=== PATIENT | male | born 1985 | race Caucasian/White ===

== ENCOUNTER 2017-06-28 23:21 | Emergency (ER) | payer SELFPAY ==
[~2017-06-28] VITALS: Ht 190.5 cm; Wt 153.6 kg
[2017-06-29] MEDS ORDERED: ISOVUE-370 76% 100ML VIAL (Q9967) As Ordered ONE (05:03)
[2017-06-29 05:32] LABS: BASO % 0.6 % (0.0-1.0); EOS # 0.2 K/mm3 (0.0-0.50); EOS % 1.9 % (0.0-3.0); LARGE UNSTAINED CELL # 0.1 K/mm3 (0.0-0.4); LARGE UNSTAINED CELL % 1.8 % (0.0-4.0); LYMPH # 1.7 K/mm3 (1.5-6.5); MEAN CORPUSCULAR HEMOGLOBIN 31.3 pg (27.0-33.0); MEAN CORPUSCULAR VOLUME 89.5 fl (80.0-96.0); MONO # 0.5 K/mm3 (0.0-0.8); MONO % 5.7 % (0.0-5.0); NEUTROPHILS # 5.3 K/mm3 (1.8-7.7); PLATELET COUNT, AUTOMATED 124 k/mm3 (150-450); RED CELL DISTRIBUTION WIDTH 12.8 % (11.5-14.5); WHITE BLOOD COUNT 7.8 K/mm3 (4.0-10.0)
[2017-06-29 05:46] LABS: ALBUMIN 3.9 GM/DL (3.2-5.2); ALBUMIN/GLOBULIN RATIO 0.98 (1.00-1.93); ALKALINE PHOSPHATASE 108 U/L (45-117); ALT/SGPT 62 U/L (12-78); AMYLASE 34 U/L (25-115); ANION GAP 5 MEQ/L (8-16); AST/SGOT 43 U/L (15-37); BILIRUBIN,DIRECT < 0.1 MG/DL (0.0-0.2); BILIRUBIN,TOTAL 0.3 MG/DL (0.2-1.0); BLOOD UREA NITROGEN 16 MG/DL (7-18); CALCIUM LEVEL 9.2 MG/DL (8.5-10.1); CARBON DIOXIDE LEVEL 30 MEQ/L (21-32); CHLORIDE LEVEL 105 MEQ/L (98-107); GLOMERULAR FILTRATION RATE > 60.0 (>60); GLUCOSE, FASTING 281 MG/DL (70-105); POTASSIUM SERUM 4.2 MEQ/L (3.5-5.1); SODIUM LEVEL 140 MEQ/L (136-145); TOTAL PROTEIN 7.9 GM/DL (6.4-8.2)
[2017-06-29] MEDS ORDERED: NORCO, ANEXSIA 5/325MG TABLET (HYDROcodone/ACETAMINOPHEN) PO ONE (06:15)
--- NOTE | 2017-06-29 06:30 | REPUSA ---
CLINICAL HISTORY: Trauma. TECHNIQUE: Multiple axial CT images were obtained through the thorax without IV contrast material. COMMENTS: Bilateral basilar atelectatic pulmonary changes. There is no evidence of pleural or parenchymal-based mass. There are no pleural effusions. There is n o evidence of hilar or mediastinal lymphadenopathy. The heart and great vessels are within normal meléndez its. The visualized portions of the liver are of uniform attenuation without mass or defect. There is no i ntra or extrahepatic biliary ductal dilatation. The spleen is unremarkable. The visualized pancreas i s of normal contour and attenuation characteristics. There is no evidence of adrenal mass. The visual ized portions of the kidneys present no abnormalities. The bony structures are free of lytic or blastic lesions. IMPRESSION: Bilateral basilar atelectatic pulmonary changes. Thank you for your kind referral of this patient.
--- NOTE | 2017-06-29 06:50 | REPUSA ---
CLINICAL HISTORY: Abdominal pain. TECHNIQUE: Multiple axial, sagittal and coronal CT images were obtained through the abdomen and pelvi s after administration of intravenous contrast material. COMMENTS: The liver is mildly enlarged with irregular contour without mass or defect. There is no intra or extr ahepatic biliary ductal dilatation. The spleen is mildly enlarged. The gallbladder is mildly enlarged . The pancreas is of normal contour and attenuation characteristics. There is no evidence of adrenal mass. Both kidneys demonstrate prompt and equal nephrograms. The kidneys are normal in size, shape and conf iguration. There is no evidence of renal or ureteral mass. No renal or ureteral calculi are identifie d. There is no hydroureter or hydronephrosis. No evidence for appendicitis. There is no bowel wall thickening. No evidence for small or large mark l obstruction. There is no evidence of abdominal ascites or lymphadenopathy. There is no evidence of intrinsic or extrinsic bladder mass. There is no pelvic ascites or lymphadeno crystal. Images of the lung bases show no evidence of pleural or parenchymal mass. There are no pleural effusi ons. The bony structures are free of lytic or blastic lesions. Multilevel degenerative changes are seen in volving the thoracolumbar spine. Scattered calcifications are seen involving the aorta and major bran ches compatible with atherosclerosis. IMPRESSION: No evidence of acute traumatic abdominal or pelvic pathology. Chronic parenchymal liver disease. Mild splenomegaly. Thank you for your kind referral of this patient.
--- NOTE | 2017-06-29 07:51 | REP ---
Clinical: Trauma. Technique: AP, lateral left humerus Findings: The osseous structures and joint spaces are intact and normal. There is no evidence for acute fracture or dislocation. Surrounding soft tissues are unremarkable. No subcutaneous emphysema or radiodense foreign body. Impression: Normal examination . No acute fracture or dislocation. Signed by Esequiel Bolivar MD 06/29/2017 07:42 A
[2017-06-29 07:59] VITALS: BP 160/91
--- NOTE | 2017-06-29 08:01 | REP ---
Clinical: Trauma. Technique: AP, lateral views of the left forearm. Findings: The osseous structures and joint spaces are intact and normal. There is no evidence for acute fracture or dislocation. Surrounding soft tissues are unremarkable. No subcutaneous emphysema or radiodense foreign body. Impression: Normal examination . No acute fracture or dislocation. Signed by Esequiel Bolivar MD 06/29/2017 07:53 A
--- NOTE | 2017-06-30 09:20 | ED PDOC ---
Post-Departure Follow-Up radiology report faxed to Phyllis Almendarez MD Jun 30, 2017 09:20
== END 2017-06-29 08:02 | disposition home or self-care (01) ==
LOC: M ED 23:21
DX: S52.125A Nondisplaced fracture of head of left radius, initial encounter for closed fracture (principal); R10.811 Right upper quadrant abdominal tenderness; W19.XXXA Unspecified fall, initial encounter; Y92.410 Unspecified street and highway as the place of occurrence of the external cause; Y93.89 Activity, other specified; Y99.8 Other external cause status
CPT/HCPCS: 29105; 71260; 73060; 73090; 74177; 80048; 80076; 82150; 83690; 85025; 99283; Q9967

== ENCOUNTER 2017-10-30 10:34 | Emergency (ER) | payer SELFPAY ==
[2017-10-30] MEDS: MORPHINE 10 MG/ML 1ML VIAL IM (11:13)
[2017-10-30] MEDS: IBUPROFEN 600 MG TAB PO (11:13)
[2017-10-30] MEDS: diazePAM 5 MG TAB PO (11:13)
== END 2017-10-30 12:19 | disposition home or self-care (01) ==
LOC: M ED 10:34
DX: S20.229A Contusion of unspecified back wall of thorax, initial encounter (principal); W01.198A Fall on same level from slipping, tripping and stumbling with subsequent striking against other object, initial encounter; Y92.481 Parking lot as the place of occurrence of the external cause; Y93.89 Activity, other specified; Y99.8 Other external cause status
CPT/HCPCS: 96372

== ENCOUNTER 2021-05-01 12:56 | Emergency (ER) | payer SELFPAY ==
[~2021-05-01] VITALS: Ht 190.5 cm; Wt 146.2 kg
[~2021-05-01 12:56] MED LIST: IBUP-1022 PO; ROBA500T PO
--- NOTE | 2021-05-01 15:57 | REP ---
INDICATION: hemoptysis. COMPARISON: Comparison chest x-ray June 28, 2013. TECHNIQUE: Two views.. FINDINGS: The lungs are well inflated and free of infiltrate. The pleural angles are sharp. The heart size is normal. Pulmonary vasculature is not increased. No significant bony abnormality is seen. IMPRESSION: Negative chest x-ray. <Electronically signed by Cecil Miguel > 05/01/21 2032
[2021-05-01 16:16] LABS: APPEARANCE, URINE CLEAR (CLEAR); BACTERIA, URINE AUTO NEGATIVE (NEGATIVE); BILIRUBIN, URINE AUTO NEGATIVE (NEGATIVE); BLOOD, URINE BLOOD NEGATIVE (NEGATIVE); COLOR, URINE STRAW (YELLOW); GLUCOSE, URINE (UA) AUTO 3+ mg/dL (NEGATIVE); KETONE, URINE AUTO NEGATIVE (NEGATIVE); LEUKOCYTE ESTERASE, URINE AUTO NEGATIVE (NEGATIVE); MUCUS, URINE SMALL (NEGATIVE); NITRITE, URINE AUTO NEGATIVE (NEGATIVE); PROTEIN, URINE AUTO NEGATIVE (NEGATIVE); RBC, URINE AUTO 1 /HPF (0-3); SPECIFIC GRAVITY URINE AUTO 1.031 (1.002-1.035); SQUAMOUS EPITHELIAL CELL UR AU 0 /HPF (0-6); UROBILINOGEN, URINE AUTO 0.2 mg/dL (0.0-2.0); WBC, URINE AUTO 0 /HPF (0-3)
[2021-05-01 16:51] LABS: RSV AMPLIFICATION NEGATIVE (NEGATIVE)
[2021-05-01 17:42] LABS: BASO % 0.4 % (0.0-1.0); EOS # 0.1 10^3/uL (0.0-0.5); EOS % 1.5 % (0.0-3.0); HEMATOCRIT 46.3 % (42.0-52.0); HEMOGLOBIN 15.9 g/dl (13.5-17.5); LYMPH # 1.2 10^3/uL (1.5-5.0); LYMPH % 15.9 % (24.0-44.0); MEAN CORPUSCULAR HEMOGLOBIN 30.1 pg (27.0-33.0); MEAN CORPUSCULAR HGB CONC 34.3 g/dl (32.0-36.5); MEAN CORPUSCULAR VOLUME 87.5 fl (80.0-96.0); MONO # 0.6 10^3/uL (0.0-0.8); MONO % 8.3 % (2.0-8.0); NEUTROPHILS # 5.4 10^3/uL (1.5-8.5); NEUTROPHILS % 73.5 % (36.0-66.0); PLATELET COUNT, AUTOMATED 107 10^3/uL (150-450); RED BLOOD COUNT 5.29 10^6/uL (4.30-6.10); WHITE BLOOD COUNT 7.4 10^3/uL (4.0-10.0)
[2021-05-01 18:44] VITALS: BP 139/82
--- NOTE | 2021-05-02 15:13 | ED PDOC ---
Post-Departure Follow-Up Called patient to discuss him starting to take Metformin due to his high sugar a nd making sure he gets an appointment [facility]. Patient did not answer but medication called into his pharmacy and will continue to try to reach patient. JUD PHILLIPS PA-C May 02, 2021 15:13
== END 2021-05-01 19:00 | disposition home or self-care (01) ==
LOC: M ED 12:56
DX: J31.0 Chronic rhinitis (principal); B34.9 Viral infection, unspecified; R05 Cough; R73.9 Hyperglycemia, unspecified

== ENCOUNTER 2021-10-05 13:17 | Emergency (ER) | payer SELFPAY ==
[~2021-10-05] VITALS: Ht 190.5 cm; Wt 144.8 kg
--- NOTE | 2021-10-05 14:36 | REP ---
INDICATION: facial droop for 6 months, left arm pain, numbness COMPARISON: None. TECHNIQUE: Axial noncontrast images from the skull base to the thoracic inlet with coronal and sagittal re-formations This CT examination was performed using the following dose reduction techniques: Automated exposure control, adjustment of mA and/or kv according to the patient's size, and use of iterative reconstruction technique. FINDINGS: Normal alignment is maintained. Cervical vertebral bodies including transverse processes and spinous processes are intact and there is no evidence for acute fracture / compression injury or subluxation. No significant degenerative changes are appreciated. Spinal canal is patent. Posterior elements are intact. Paravertebral soft tissues are normal. IMPRESSION: Normal age-appropriate noncontrast cervical spine CT. No evidence for acute pathology or trauma/injury. <Electronically signed by Esequiel Bolivar > 10/05/21 [id number]
--- NOTE | 2021-10-05 14:36 | REP ---
INDICATION: facial droop for 6 months, left arm pain, numbness COMPARISON: 04/27/2007 TECHNIQUE: Axial noncontrast images from the skull base to the vertex with coronal reformations. This CT examination was performed using the following dose reduction techniques: Automated exposure control, adjustment of mA and/or kv according to the patient's size, and use of iterative reconstruction technique. FINDINGS: The ventricles, sulci, and cisterns are normal in position and appearance. Berry-white differentiation is maintained. No acute intracranial hemorrhage, mass/mass effect, pathology or trauma/injury. No evidence for acute infarction. No extra-axial fluid collection. Calvarium is intact. Near complete opacification of the facial sinuses consistent with chronic pansinusitis. IMPRESSION: Normal noncontrast head CT. Chronic pansinusitis. No evidence for acute intracranial pathology or trauma/injury. <Electronically signed by Esequiel Bolivar > 10/05/21 [id number]
--- NOTE | 2021-10-05 14:37 | REP ---
INDICATION: shoulder pain COMPARISON: None. TECHNIQUE: Internal rotation, external rotation, and Y view. FINDINGS: No acute fracture or dislocation. The acromioclavicular and glenohumeral joints are intact. No periarticular calcifications or degenerative changes are appreciated. Sub acromial space is normal. Surrounding soft tissues are unremarkable. IMPRESSION: Normal left shoulder radiographs. <Electronically signed by Esequiel Bolivar > 10/05/21 1700
[2021-10-05 15:21] LABS: ALBUMIN 3.8 GM/DL (3.2-5.2); ALT/SGPT 45 U/L (12-78); BILIRUBIN,TOTAL 0.4 MG/DL (0.2-1.0); BLOOD UREA NITROGEN 19 MG/DL (7-18); C REACTIVE PROTEIN QUANTITATIV 0.71 MG/DL (0.00-0.30); CALCIUM LEVEL 9.8 MG/DL (8.5-10.1); CARBON DIOXIDE LEVEL 28 MEQ/L (21-32); CHLORIDE LEVEL 102 MEQ/L (98-107); CREATININE FOR GFR 1.06 MG/DL (0.70-1.30); GLOMERULAR FILTRATION RATE > 60.0 (>60); GLUCOSE, FASTING 438 MG/DL (70-100); POTASSIUM SERUM 4.5 MEQ/L (3.5-5.1); SODIUM LEVEL 135 MEQ/L (136-145); TOTAL PROTEIN 8.4 GM/DL (6.4-8.2)
[2021-10-05 15:42] LABS: BASO % 0.6 % (0.0-1.0); EOS # 0.1 10^3/uL (0.0-0.5); EOS % 1.7 % (0.0-3.0); HEMATOCRIT 44.5 % (42.0-52.0); HEMOGLOBIN 15.7 g/dl (13.5-17.5); LYMPH # 1.6 10^3/uL (1.5-5.0); LYMPH % 22.9 % (24.0-44.0); MEAN CORPUSCULAR HEMOGLOBIN 30.6 pg (27.0-33.0); MEAN CORPUSCULAR HGB CONC 35.3 g/dl (32.0-36.5); MEAN CORPUSCULAR VOLUME 86.7 fl (80.0-96.0); MONO # 0.5 10^3/uL (0.0-0.8); MONO % 6.6 % (2.0-8.0); NEUTROPHILS # 4.8 10^3/uL (1.5-8.5); NEUTROPHILS % 68.1 % (36.0-66.0); PLATELET COUNT, AUTOMATED 131 10^3/uL (150-450); RED BLOOD COUNT 5.13 10^6/uL (4.30-6.10)
[2021-10-05 15:58] LABS: HEMOGLOBIN A1c 10.7 %
[2021-10-05 16:00] LABS: ERYTHROCYTE SEDIMENTATION RATE 22 mm/hr (0-15)
[2021-10-05] MEDS ORDERED: METF500T13 PO (16:07)
[2021-10-05 16:26] VITALS: BP 140/81
[2021-10-07 13:07] LABS: IgG P18 AB Absent (.); IgG P23 AB Absent (.); IgG P28 AB Absent (.); IgG P30 AB Absent (.); IgG P39 AB Absent (.); IgG P41 AB Absent (.); IgG P45 AB Absent (.); IgG P66 AB Absent (.); IgG P93 AB Absent (.); IgM P23 AB Absent (.); IgM P39 AB Absent (.); IgM P41 AB Absent (.); LYME IgG WB INTERPRETATION Negative (.); LYME IgM WB INTERPRETATION Negative (.)
[2021-10-07 15:08] LABS: Lyme Disease IgG/IgM Antibodie <0.91 ISR (0.00-0.90); Lyme Disease IgM Ab Quantitati <0.80 index (0.00-0.79)
== END 2021-10-05 16:32 | disposition home or self-care (01) ==
LOC: M ED 13:17
DX: E11.9 Type 2 diabetes mellitus without complications (principal); G51.0 Bell's palsy; R20.2 Paresthesia of skin; M25.512 Pain in left shoulder; J32.4 Chronic pansinusitis; G47.00 Insomnia, unspecified; F12.10 Cannabis abuse, uncomplicated

== ENCOUNTER 2024-06-17 15:55 | Emergency (ER) | payer SELFPAY ==
[~2024-06-17] VITALS: Ht 190.5 cm; Wt 138.0 kg
[~2024-06-17 15:55] MED LIST changes: +METF500T13 PO
[2024-06-17 16:49] LABS: VENOUS BASE EXCESS -2.6 (-2.0-2.0); VENOUS HCO3 24.2 MMOL/L (23.0-27.0); VENOUS O2 SATURATION 72.7 % (60.0-80.0); VENOUS PARTIAL PRESSURE CO2 48.9 mmHg (38.0-50.0); VENOUS PARTIAL PRESSURE O2 38.9 mmHg (30.0-50.0); VENOUS PH 7.312 UNITS (7.330-7.430); VENOUS STANDARD HCO3 21.7 MMOL/L; VENOUS TOTAL CO2 25.7 MMOL/L (24.0-28.0)
[2024-06-17 16:55] LABS: BASO % 0.5 % (0.0-1.0); EOS # 0.1 10^3/uL (0.0-0.5); EOS % 1.3 % (0.0-3.0); HEMATOCRIT 43.3 % (42.0-52.0); HEMOGLOBIN 15.3 g/dl (13.5-17.5); LYMPH # 1.2 10^3/uL (1.5-5.0); LYMPH % 19.9 % (24.0-44.0); MEAN CORPUSCULAR HEMOGLOBIN 31.1 pg (27.0-33.0); MEAN CORPUSCULAR HGB CONC 35.3 g/dl (32.0-36.5); MONO # 0.3 10^3/uL (0.0-0.8); MONO % 4.9 % (2.0-8.0); NEUTROPHILS # 4.5 10^3/uL (1.5-8.5); NEUTROPHILS % 73.2 % (36.0-66.0); RED BLOOD COUNT 4.92 10^6/uL (4.30-6.10); WHITE BLOOD COUNT 6.1 10^3/uL (4.0-10.0)
[2024-06-17] MEDS: ONDANSETRON 4MG 2ML VIAL IV ONE (16:57)
[2024-06-17] MEDS: NS 1,000 ML IV ONE (16:57)
[2024-06-17 17:23] LABS: LIPASE 52 U/L (12-53)
[2024-06-17 17:25] LABS: ALBUMIN 3.8 G/DL (3.2-5.2); ALKALINE PHOSPHATASE 188 U/L (46-116); ALT/SGPT 84 U/L (7.0-40); AST/SGOT 67 U/L (<34); BILIRUBIN,DIRECT 0.2 MG/DL (<0.4); BILIRUBIN,TOTAL 0.7 MG/DL (0.3-1.2); BLOOD UREA NITROGEN 18 MG/DL (9-23); CALCIUM LEVEL 9.3 MG/DL (8.5-10.1); CARBON DIOXIDE LEVEL 25 MMOL/L (20-31); CHLORIDE LEVEL 105 MMOL/L (98-107); CREATININE FOR GFR 0.71 MG/DL (0.70-1.30); GLOMERULAR FILTRATION RATE > 60.0 (>60); GLUCOSE, FASTING 384 MG/DL (60-100); MAGNESIUM LEVEL 1.8 MG/DL (1.8-2.4); POTASSIUM SERUM 4.2 MMOL/L (3.5-5.1); SODIUM LEVEL 135 MMOL/L (136-145); TOTAL PROTEIN 8.1 G/DL (5.7-8.2)
[2024-06-17 17:26] LABS: ACETONE/KETONE 0.13 MMOL/L (0.02-0.27)
[2024-06-17 17:39] LABS: PLATELET COUNT, AUTOMATED 91 10^3/uL (150-450)
[2024-06-17] MEDS ORDERED: METF500T13 PO (18:24)
[2024-06-17] MEDS ORDERED: ONDA-282 PO (18:24)
[2024-06-17 18:40] VITALS: BP 138/86; TEMP 98.4; O2SAT 99
[2024-06-17 18:46] LABS: HEMOGLOBIN A1c 12.9 % (4.0-6.0)
== END 2024-06-17 18:48 | disposition home or self-care (01) ==
LOC: M ED 15:55
DX: E11.65 Type 2 diabetes mellitus with hyperglycemia (principal); B34.9 Viral infection, unspecified; R11.2 Nausea with vomiting, unspecified; I10 Essential (primary) hypertension; Z79.84 Long term (current) use of oral hypoglycemic drugs
CPT/HCPCS: 36415; 80048; 80076; 81001; 82010; 82803; 83036; 83690; 83735; 85025; 85049; 85055; 93005; 93041; 94760; 96361; 96374; 99285; J2405

== ENCOUNTER → 2024-11-22 | Outpatient (REF) | payer BC ==
[~2024-11-22] MED LIST changes: +ONDA-282 PO
[2024-11-22 14:05] LABS: CREATININE, URINE 111.7 MG/DL; MAU/CREAT RATIO 7.1 MCG/MG (0.0-30.0)
== END ==
LOC: M LAB REF 12:31
PROVIDERS: ATTEND Student in an Organized Health Care Education/Training Program
DX: E11.9 Type 2 diabetes mellitus without complications (principal)

== ENCOUNTER → 2024-11-24 | Outpatient (REF) | payer BC ==
[2024-11-24 15:33] LABS: HEMATOCRIT 45.1 % (42.0-52.0); HEMOGLOBIN 15.7 g/dl (13.5-17.5); MEAN CORPUSCULAR HEMOGLOBIN 31.3 pg (27.0-33.0); MEAN CORPUSCULAR HGB CONC 34.8 g/dl (32.0-36.5); PLATELET COUNT, AUTOMATED 100 10^3/uL (150-450); RED BLOOD COUNT 5.01 10^6/uL (4.30-6.10); WHITE BLOOD COUNT 6.5 10^3/uL (4.0-10.0)
[2024-11-24 15:57] LABS: ALBUMIN 3.5 G/DL (3.2-5.2); ALKALINE PHOSPHATASE 159 U/L (40-129); ALT/SGPT 88 U/L (7.0-40); AST/SGOT 52 U/L (<34); BLOOD UREA NITROGEN 16 MG/DL (9-23); CALCIUM LEVEL 9.1 MG/DL (8.5-10.1); CARBON DIOXIDE LEVEL 31 MMOL/L (20-31); CHLORIDE LEVEL 100 MMOL/L (98-107); CHOLESTEROL LEVEL 197 MG/DL (<200); CHOLESTEROL RISK RATIO 6.08 (<5); CREATININE FOR GFR 0.81 MG/DL (0.70-1.30); GLOMERULAR FILTRATION RATE > 60.0 (>60); GLUCOSE, FASTING 263 MG/DL (60-100); HDL CHOLESTEROL 32.4 MG/DL (>40); LDL CHOLESTEROL 109.2 MG/DL (<100); NON-HDL-C 164.6 MG/DL; POTASSIUM SERUM 4.5 MMOL/L (3.5-5.1); SODIUM LEVEL 138 MMOL/L (136-145); TOTAL PROTEIN 7.8 G/DL (5.7-8.2); TRIGLYCERIDES LEVEL 277 MG/DL (<150)
== END ==
LOC: M LAB REF 12:46
PROVIDERS: ATTEND Student in an Organized Health Care Education/Training Program
DX: Z00.01 Encounter for general adult medical examination with abnormal findings (principal)

== ENCOUNTER → 2024-12-13 | Outpatient (REF) | payer BC ==
[2024-12-13 14:40] LABS: BASO # 0.1 10^3/uL (0.0-0.2); BASO % 0.9 % (0.0-1.0); EOS # 0.1 10^3/uL (0.0-0.5); EOS % 2.5 % (0.0-3.0); HEMATOCRIT 44.2 % (42.0-52.0); HEMOGLOBIN 15.1 g/dl (13.5-17.5); LYMPH # 1.4 10^3/uL (1.5-5.0); LYMPH % 25.1 % (24.0-44.0); MEAN CORPUSCULAR HEMOGLOBIN 30.6 pg (27.0-33.0); MEAN CORPUSCULAR HGB CONC 34.2 g/dl (32.0-36.5); MEAN CORPUSCULAR VOLUME 89.7 fl (80.0-96.0); MONO # 0.5 10^3/uL (0.0-0.8); MONO % 8.5 % (2.0-8.0); NEUTROPHILS # 3.5 10^3/uL (1.5-8.5); NEUTROPHILS % 62.8 % (36.0-66.0); PLATELET COUNT, AUTOMATED 100 10^3/uL (150-450); RED BLOOD COUNT 4.93 10^6/uL (4.30-6.10); WHITE BLOOD COUNT 5.6 10^3/uL (4.0-10.0)
[2024-12-13 14:41] LABS: ALBUMIN 3.6 G/DL (3.2-5.2); ALKALINE PHOSPHATASE 113 U/L (40-129); ALT/SGPT 44 U/L (7.0-40); AST/SGOT 38 U/L (<34); BILIRUBIN,DIRECT 0.2 MG/DL (<0.4); BILIRUBIN,TOTAL 0.6 MG/DL (0.3-1.2); TOTAL PROTEIN 7.7 G/DL (5.7-8.2)
[2024-12-13 15:01] LABS: HEPATITIS B SURFACE ANTIGEN NEGATIVE (NEGATIVE)
[2024-12-13 15:22] LABS: HEPATITIS B CORE ANTIBODY IGM NEGATIVE (NEGATIVE); HEPATITIS C VIRUS ABY INDEX 0.13 INDEX (<0.8)
== END ==
LOC: M LAB REF 12:57
PROVIDERS: ATTEND Student in an Organized Health Care Education/Training Program
DX: D69.6 Thrombocytopenia, unspecified (principal); R74.01 Elevation of levels of liver transaminase levels; R74.8 Abnormal levels of other serum enzymes

== ENCOUNTER → 2024-12-25 | Outpatient (CLI) | payer BC | LOC: M RAD 13:07 | PROVIDERS: ATTEND Student in an Organized Health Care Education/Training Program | DX: R22.41 Localized swelling, mass and lump, right lower limb (principal) ==

== ENCOUNTER → 2025-01-31 | Outpatient (CLI) | payer BC | LOC: M RAD 08:32 | PROVIDERS: ATTEND Student in an Organized Health Care Education/Training Program | DX: R74.01 Elevation of levels of liver transaminase levels (principal) ==

== ENCOUNTER → 2025-06-26 | Outpatient (REF) | payer BC ==
[~2025-06-26] MED LIST changes: -IBUP-1022 PO; +IBUP600T42 PO
[2025-06-26 13:02] LABS: PLATELET COUNT, AUTOMATED 105 10^3/uL (150-450)
[2025-06-26 13:11] LABS: ALT/SGPT 70 U/L (7.0-40); AST/SGOT 51 U/L (<34); CALCIUM LEVEL 9.2 MG/DL (8.5-10.1); CARBON DIOXIDE LEVEL 33 MMOL/L (20-31); CHLORIDE LEVEL 101 MMOL/L (98-107); CHOLESTEROL LEVEL 189 MG/DL (<200); CHOLESTEROL RISK RATIO 5.46 (<5); CREATININE FOR GFR 0.89 MG/DL (0.70-1.30); GLOMERULAR FILTRATION RATE > 90.0 (>60); LDL CHOLESTEROL 114.6 MG/DL (<100); NON-HDL-C 154.4 MG/DL; POTASSIUM SERUM 4.2 MMOL/L (3.5-5.1); SODIUM LEVEL 141 MMOL/L (136-145); TRIGLYCERIDES LEVEL 199 MG/DL (<150)
[2025-06-26 13:18] LABS: ESTIMATED AVERAGE GLUCOSE 280.0 MG/DL (60-110)
== END ==
LOC: M LAB REF 08:20
PROVIDERS: ATTEND Student in an Organized Health Care Education/Training Program
DX: E78.5 Hyperlipidemia, unspecified (principal); E11.9 Type 2 diabetes mellitus without complications; K76.0 Fatty (change of) liver, not elsewhere classified; D69.6 Thrombocytopenia, unspecified